=== PATIENT | male | born 1945 | race Caucasian/White ===

== ENCOUNTER 2018-08-19 11:12 | Observation (INO) | payer MEDICARE, OTHER ==
[~2018-08-19] VITALS: Ht 190.5 cm; Wt 105.0 kg
[2018-08-19] MEDS ORDERED: ZESTRIL40 MG PO (11:36)
[2018-08-19] MEDS ORDERED: FUROSEMIDE20 MG PO (11:36)
[2018-08-19] MEDS ORDERED: METOPROLOL SUCC25 MG PO (11:37)
--- NOTE | 2018-08-19 14:29 | EKG ---
[facility] [address] [facility] [place], [place] [address] Signed Atrial fibrillation with rapid ventricular response Nonspecific ST and T wave abnormality Abnormal ECG No previous ECGs available Confirmed by MARIANELA BANUELOS DO ([id number]) on 08/19/2018 2:29:32 PM Electronically Signed By: MARIANELA BANUELOS DO 08/19/18 1429 PATIENT NAME: SEAN SAGE Electrocardiogram DATE OF : 47 PHYSICIAN: MARIANELA BANUELOS DO REPORT #: [id number] REPORT IS CONFIDENTIAL AND NOT TO BE RELEASED WITHOUT AUTHORIZATION
--- NOTE | 2018-08-19 15:30 | NUR ---
PT ARRIVED FROM ED. PT TRANSFERES SELF TO BED. WARM BLANKETS PROVIDED INTAKE ASSESSMENT DONE. FLUIDS HUNG (SEE MAR). PT REPORTS 7/10 PAIN BUT DENIES NEED FOR PAIN MEDICATION AT THIS TIME. PT ASSISTED WITH ORDERING DINNER. BED RAILS UP. CALL LIGHT WITHIN REACH. BED ALARM ON.
--- NOTE | 2018-08-19 17:55 | NUR ---
PT REQUESTS PAIN MEDICATION FOR 4/10 PAIN IN LEFT ANKLE AND WRIST. SEE MAR FOR MEDICATION GIVEN. PT ATTEMPTING TO VOID FOR SAMPLE. BED RAILS UP. CALL LIGHT WITHIN REACH.
--- NOTE | 2018-08-19 18:42 | NUR ---
PT ADMITTED TODAY FOR WEAKNESS AFTER 2 DAYS ON THE FLOOR AT HOME. PT TOLERATING REGULAR DIET. FLUID BOLUS GIVEN. TYLENOL PRN FOR PAIN IN LEFT WRIST AND LEFT ANKLE. SWELLING NOTABLE. URINE SAMPLE SENT TO LAB. RECENT DIAGNOSIS OF CHF, PT NONCOMPLIANT WITH CARE. PT USING CALL LIGHT APPROPRIATLY.
--- NOTE | 2018-08-19 19:05 | NUR ---
REPORT RECEIVED FROM ALISON JOE, PT RESTING IN BED, VISITING WITH STAFF. NO NEEDS AT THIS TIME. CALL LIGHT WITHIN REACH. FALL PRECAUTIONS IN PLACE.
[2018-08-19] MEDS ORDERED: METOPROLOL TART25 MG PO (19:06)
--- NOTE | 2018-08-19 20:30 | NUR ---
IN ROOM TO ADMIN EVENING MEDS, SHIFT ASSESSMENT COMPLETE, PT AOX4, APPROPRIATE, POLITE, CALM, PT MENTIONS CHRONIC PAIN RELATED TO ARTHRITIS IN ANKLES, DENIES NEED FOR PAIN MEDICATION AT THIS TIME. STATES PAIN IS 3/10. VSS, AFEBRILE, PT'S LS CLEAR, PULSES REGULAR, STRONG IN BUE, BLE EDEMA NOTED, PULSES FAINT/THREADY. CAP REFILL WNL, IV SL, FLUSHES WELL, ON RA, EDUCATION PROVIDED REGARDING MEDICATIONS, QUESTIONS ANSWERED, SIDE EFFECTS EXPLAINED. PT GIVEN NEW ICE WATER PER PT'S REQUEST, TOOTHBRUSH AND TOOTH PASTE PROVIDED FOR ORAL CARE. NO FURTHER REQUESTS AT THIS TIME. CALL LIGHT WITHIN REACH.
--- NOTE | 2018-08-19 20:53 | NUR ---
ROUNDED CHARGE. PATIENT IS RESTING IN BED. RN IN THE ROOM. PATIENT DENIES ANY COMMENTS, QUESTIONS, OR CONCERNS. NO NEEDS NOTED. CALL LIGHT IN REACH. BED ALARM ON FOR SAFETY.
--- NOTE | 2018-08-19 21:42 | NUR ---
MD NOTIFIED OF PT'S URINE OUTPUT OF 175, PER CALL PROTOCOLS PT'S URINE OUTPUT IS LOW, MD AWARE. NO NEW ORDERS. MD TO FOLLOW UP IN AM.
--- NOTE | 2018-08-19 21:55 | NUR ---
PATIENT CALLED TO EMPTY THE URINAL. PATIENT VOIDED 175 ML.
--- NOTE | 2018-08-19 23:41 | NUR ---
PT APPEARS TO BE SLEEPING, BREATHS EVEN, UNLABORED, NO NEEDS AT THIS TIME. CALL LIGHT WITHIN REACH, HYDRATION AT BEDSIDE. BED ALARM ON. FALL PRECAUTIONS IN PLACE.
--- NOTE | 2018-08-20 02:25 | NUR ---
IN PT ROOM FOR VITALS, PT INCONTINENT OF URINE, PT STATES "I MISSED THE URINAL". ROB FREGOSO, JOSH CHANGED AT THIS TIME, 75 ML VOID NAMRATA IN COLOR. PT ASSISTED WITH ADDITIONAL VOID AT THIS TIME, 175 ML NAMRATA URINE, ODOROUS. TATYANA BILL NOW IN ROOM TO ASSESS PT. CALL LIGHT IN REACH. PT GIVEN FRESH ICE WATER.
--- NOTE | 2018-08-20 02:43 | NUR ---
IN ROOM FOR SHIFT ASSESSMENT, PT AOX4, APPOPRIATE, RESTING IN BED, LS CLEAR, HEART SOUNDS IRREGULAR RYTHM, PULSES STRONG IN BUE, FAINT IN BLE, MODERATE PITTING EDEMA NOTED IN BLE/ LEFT WRIST. PT DENIES ANY PAIN AT THIS TIME. BT HYPOACTIVE, ABD NONTENDER, SOFT, ON RA, DENIES SOB/CP, DENIES ANY NEEDS AT THIS TIME, HYDRATION AT BEDSIDE. CALL LIGHT WITHIN REACH, BED ALARM ON, FALL PRECAUTIONS IN PLACE.
--- NOTE | 2018-08-20 04:00 | NUR ---
PT APPEARS TO BE SLEEPING, BREATHS EVEN, UNLABORED, NO NEEDS AT THIS TIME. CALL LIGHT WITHIN REACH. HYDRATION AT BEDSIDE. BED ALARM ON. FALL PRECAUTIONS IN PLACE.
--- NOTE | 2018-08-20 04:25 | NUR ---
PT AOX4 THIS SHIFT, SLEPT MOST OF THIS SHIFT, NO PRN PAIN MEDICATION GIVEN THIS SHIFT. IV SL, PT DID NOT GET OUT OF BED THIS SHIFT, PT VOIDS WITH URINAL AND ASSISTANCE, ON RA, REGULAR DIET. USES CALL LIGHT APPROPRIATELY. VSS. URINE OUTPUT LOW AT BEGINNING OF SHIFT, QS OVER THE LAST FOUR HOURS. NO C/O NAUSEA OR SOB.
--- NOTE | 2018-08-20 06:54 | NUR ---
PT UP TO STAND AT BEDSIDE WITH 2-3 PERSON MAX ASSIST FOR STANDING BEDSIDE WEIGHT. PT UNABLE TO STEP UP ON SCALE, SCALE HAD TO BE REPOSITIONED WITH HIS FEET ON IT. PT UNSTEADY ON HIS FEET. PT DENIES ANY PAIN OR LIGHT HEADEDNESS OR DIZZINESS WITH STANDING, STATES THAT HE JUST FEELS WEAK IN HIS LOWER EXTREMITIES. PT BACK TO BED NOW, CALL LIGHT WITHIN REACH. NEW ICE WATER PROVIDED PER EMAR. NO FURTHER REQUESTS AT THIS TIME.
--- NOTE | 2018-08-20 07:46 | NUR ---
MORNING ASSESSMENT AND MEDICATIONS DUE. THIS RN TO BEDSIDE. PT STATES HE IS PLANNING TO GO HOME TODAY. PT UPDATED ON PLAN OF CARE AND VISITS WITH PHYSICAL THERAPY, OCCUPATIONAL THERAPY, AND CASE MANAGEMENT TODAY. PT REPORTS 2/10 PAIN IN LEFT ANKEL AND WRIST, AND 3/10 PAIN IN RIGHT ANKLE. PT DENIES NAUSEA. PT CONTINUES TO BE WEEK IN LEGS AND LEFT ARM. ASSESSMENT DONE. MEDICATIONS GIVEN (SEE MAR). PT EATING BREAKFAST, BED RAILS UP. CALL LIGHT WITHIN REACH.
[2018-08-20] MEDS ORDERED: IBUPROFEN200 MG PO (09:56)
[2018-08-20] MEDS ORDERED: ASPIRIN325 MG PO (09:56)
--- NOTE | 2018-08-20 09:57 | NUR ---
MED REC COMPLETE
--- NOTE | 2018-08-20 10:57 | NUR ---
MEDICATIONS DUE. THIS RN TO BEDSIDE. PT UP IN CHAIR TALKING WITH MD. MEDICATIONS GIVEN ORDERED. CRACKERS PROVIDED A SNACK. PT ORDERING LUNCH. NO ADDITIONAL REQUESTS OR COMPLAINTS.
--- NOTE | 2018-08-20 13:31 | NUR ---
PT SITTING IN CHAIR, ALERT AND ORIENTED. HIS RESPONSES TO MY QUESTIONS EACH HAD INTERESTING ANSWERS. HIS THOUGHT PROCESS IS UNIQUE TO SAY THE LEAST. PT DID MENTION THAT HE DID NOT LIKE IV'S, HAS PULLED THEM OUT HIMSELF AT [facility] NOT [facility]. I CAUTIONED HIM TO NOT PULL THEM OUT HERE. WILL CONTINUE TO CHECK ON PT, AND FOLLOW NEEDED
--- NOTE | 2018-08-20 13:58 | NUR ---
THIS RN TO BEDSIDE FOR PIV START. PT REFUSING IV START. MD NOTIFIED. MD STATES OK TO LEAVE PIV OUT. PT DENIES PAIN AND NASUEA. PT UP TO CHAIR. CALL LIGHT WITHIN REACH.
--- NOTE | 2018-08-20 15:00 | NUR ---
THIS RN TO ROOM TO UPDATED PT ON PLAN OF CARE. PT UP TO CHAIR. VERBALIZES UNDERSTANDING OF PLAN OF CARE. NO REQUESTS OR COMPLAINTS AT THIS TIME. CALL LIGHT WITHIN REACH.
--- NOTE | 2018-08-20 16:03 | NUR ---
TALKED WITH PT ABOUT THE APPT MADE WITH DR CHANG FOR Aug AT 1030 AM. I INFORMED THE PT OF THIS AND HE WAS VERY HAPPY ABOUT THIS. EXPLAINED WHERE THE OFFICES ARE. ALSO LET THE PT KNOW THAT WE ASSIGNED A CHW FOR HIM AND WOULD THAT BE OK IF THEY CALLED AND POSS VISITED WITH HIM. HE STATED HE WOULD WELCOME THE HELP. FAXED OFF PAPERWORK FOR A FRONT WHEELED WALKER INCLUDING FACE SHEET, ER NOTES, H AND P, PROG NOTE, PT NOTE AND OT NOTE. RECIEVED FAX CONFIRMATION.
--- NOTE | 2018-08-20 17:25 | NUR ---
AFTERNOON ASSESSMENT AND MEDICATIONS DUE. THIS RN TO BEDSIDE. PT EATING DINNER. PT REPORTS 2-3/10 PAIN THAT "ISN'T THAT BAD." PT DENIES NEED FOR PAIN MEDICATION AT THIS TIME. ASSESSMENT DONE. SWELLING CONTINUES IN BLE. PT ENCOURAGED TO KEEP BLE ELEVATED. EDUCATION DONE R/T PTS CONDITION AND REASON FOR SWELLING. PT VERBALIZES UNDERSTANDING. CALL LIGHT WITHIN REACH. PT WATCHING TV. NO ADDITIONAL REQUESTS OR COMPLAINTS.
--- NOTE | 2018-08-20 18:13 | NUR ---
PATIENT RESTING IN BED. VITAL SIGNS AND I&O DONE. HIGH BLOOD PRESSURE. RN NOTIFIED. CALL LIGHT WITHIN REACH. NO OTHER NEEDS AT THIS TIME.
--- NOTE | 2018-08-20 18:13 | NUR ---
PT HERE FOR WEAKNESS. TOLERATING REGULAR DIEST WELL. 2 PA WITH FWW. PT UP WITH PHYSICAL THERAPY TODAY, MUCH STRONGER IN PM. OCCUPATIONAL THERAPY INVOLVED WELL. NO PIV (PT REFUSED). DAILY WEIGHT. PRN TYLENOL FOR PAIN. PT ANTICIPATING DISCHARGE TOMORROW. PT USES CALL LIGHT APPROPRIATLY.
--- NOTE | 2018-08-20 18:42 | NUR ---
MD NOTIFIED OF PTS BLOOD PRESSURES (HIGHLIGHTING DIASTOLIC VALUES). MD STATES HE WILL REEVALUATE BLOOD PRESSURE MEDICATIONS AND PLACE NEW ORDERS.
--- NOTE | 2018-08-20 19:15 | NUR ---
BEDSIDE REPORT RECEIVED FROM TATYANA ROSAS. PT AWAKE, SITTING AT SIDE OF BED. URINAL EMPTIED AT THIS TIME. CALL LIGHT IN REACH, PT VERBALIZES UNDERSTANDING TO USE CALL LIGHT BEFORE GETTING OUT OF BED. ICE WATER PROVIDED PER PT REQUEST.
--- NOTE | 2018-08-20 19:20 | NUR ---
BEDSIDE CHARGE NURSE REPORT RECEIVED FROM [place]. PT SITTING ON EDGE OF BED, WATCHING TV.
--- NOTE | 2018-08-20 20:23 | NUR ---
IN PT ROOM FOR SCHEDULED MEDICATION ADMINISTRATION. BP 138/99, HR 84, PT EDUCATED ON ADJUSTED DOSE OF METOPROLOL. PRN TYLENOL ADMINISTERED FOR 3/10 PAIN BILATERALLY IN ANKLES PER PT REQUEST. PULSES STRONG BILATERALLY UPPER AND LOWER EXTREMITIES, 2 + PITTING EDEMA BILATERALLY LOWER EXTREMITIES, 1+ EDEMA L WRIST. PT GIVEN ICE WATER, CLEAR YELLOW URINE EMPTIED FROM URINAL. PT HAS NO ADDITIONAL REQUESTS AT THIS TIME, LIGHTS OFF IN ROOM, CALL LIGHT IN REACH.
--- NOTE | 2018-08-20 21:45 | NUR ---
CALL LIGHT ANSWERED, PT ASSISTED TO REPOSITION/ADJUST BLANKETS. URINAL EMPTIED 350 YELLOW URINE. HISTOLOGY SPECIALIST NOTIFIED OF PT REQUEST FOR SANDWICH BOX AT THIS TIME. CALL LIGHT IN REACH, LIGHTS OFF IN ROOM.
--- NOTE | 2018-08-20 23:18 | NUR ---
CHECKED ON PT, LYING ON LEFT SIDE, APPEARS TO BE SLEEPING, BREATHING NON-LABORED. LIGHTS OFF IN ROOM.
--- NOTE | 2018-08-21 00:55 | NUR ---
CHECKED ON PT, APPEARS TO BE SLEEPING, EYES CLOSED, BREATHING EVEN AND NON-LABORED. LIGHTS OFF IN ROOM.
--- NOTE | 2018-08-21 03:05 | NUR ---
PATIENT CALLED FOR URINAL TO BE EMPTIED. ICE WATER REFILLED.
--- NOTE | 2018-08-21 03:29 | NUR ---
ROUNDED ON PT, APPEARS TO BE SLEEPING, EYES CLOSED, VISIBLE CHEST RISE EQUAL BILATERALLY. LIGHTS OFF IN ROOM.
--- NOTE | 2018-08-21 05:06 | NUR ---
PT HAS APPEARED TO SLEEP WELL THROUGHOUT SHIFT. VOIDING QS, YELLOW IN COLOR IN URINAL. PRN TYLENOL X 1 FOR CHRONIC L WRIST, L ANKLE PAIN. NO IV ACCESS. 2+ PITTING EDEMA BLE, 1+ EDEMA L HAND. LEGS ELEVATED THROUGHOUT SHIFT. 2PA WITH FWW.
--- NOTE | 2018-08-21 05:30 | NUR ---
PT ASSESSMENT AND VITALS COMPLETE AT THIS TIME. STANDING WEIGHT 231.4 LBS. URINAL EMPTIED, 125 ML CONCENTRATED URINE. PT DENIES PAIN AT THIS TIME, REFUSES PRN PAIN MEDICATIONS. PT GIVEN WARM BLANKET, ICE WATER, CALL LIGHT IN REACH. LIGHTS OFF IN ROOM.
--- NOTE | 2018-08-21 07:22 | NUR ---
RECIEVED REPORT FROM ZULMA JOE. PATIENT SITTING UP IN BED, AWAKE AND ALERT. WHITE BOARD UPDATED. DISCUSSED PLANS ABOUT DISCHARGE. ICE WATER BROUGHT TO PATIENT. DR. BANUELOS IN ROOM WITH PATIENT. NO MORE NEEDS AT THIS TIME.
[2018-08-21] MEDS ORDERED: POTASSIUM CHLO10 MEQ PO (08:08)
--- NOTE | 2018-08-21 08:58 | NUR ---
PATIENT SITTING ON SIDE OF BED FROM BREAKFAST. FRESH WATER GIVEN. WARM WASHCLOTH PROVIDED. ORAL CARE SET UP IN BATHROOM. CALL LIGHT IN REACH. NO FURTHER NEEDS AT THIS TIME.
--- NOTE | 2018-08-21 09:42 | NUR ---
ROUNDED ON PATIENT FOR MEDICATION ADMINISTRATION AND MORNING ASSESSMENT. PATIENT DENIES SHORTNESS OF BREATH AND DIFFICULTY BREATHING, ROOM AIR. PATIENT DENIES DIZZINESS WHEN STANDING. REPORTS TINGLING IN LEFT LOWER EXTREMITIES AT THIS TIME, BUT REPORTS OCCASIONAL TINGLING THAT COMES AND GOES IN LOWER EXTREMITIES. 2PA PATIENT WITH ASSISTANCE FROM TUBE BLOWER TO SHOWER CHAIR FOR SHOWER. PATIENT DENIES PAIN AT THIS TIME. TUBE BLOWER PROVIDED EDUCATION TO PULL CORD IN SHOWER WHEN FINISHED WITH SHOWER. TUBE BLOWER MAKING PATIENT BED. POSSESSIONS AT BEDSIDE. NO MORE NEEDS AT THIS TIME.
--- NOTE | 2018-08-21 10:00 | NUR ---
TALKED TO PHYSICAL THERAPIST ABOUT ASSESSING THE HEIGHT OF PATIENT WALKER, PER PATIENT REQUEST. PHYSICAL THERAPIST EXPRESSED UNDERSTANDING.
--- NOTE | 2018-08-21 10:23 | NUR ---
FAXED FACE SHEET, ORDER, ER NOTES AND SUMMARY, H AND P, PROG NOTES, PT AND OT EVALS AND NOTES TO [facility]. RECIEVED FAX CONFIRMATION OF THIS.
--- NOTE | 2018-08-21 11:58 | NUR ---
rounded on patient for medication adminstration. patient resting in bed, awake and alert. patient REPORTS AT "4/10" PAIN IN LEFT WRIST AND "3/10" PAIN IN LEFT ANKLE, PRN TYLENOL. DISCHARGE INSTRUCTION PROVIDED ABOUT WEAKNESS AND ENSURING SAFETY AT HOME. TAUGHT PATIENT ABOUT THE IMPORTANCE OF TAKING SCHEDULED MEDICATIONS, REMOVING EXCESS RUGS AND CORDS TO PREVENT TRIPPING HAZARDS IN THE HOME. PATIENT WAS INSTRUCTED TO USE WALKER WHILE AMBULATING AND TO HAVE INCREASED LIGHTING IN THE HOME TO INCREASE VISABLITY OF OBJECTS IN THE HOME TO PREVENT FALLS. PATIENT EXPRESSED UNDERSTANDING BY STATING THEY WILL "REMOVE BLANKETS AND PILLOWS FROM FLOOR". [employer] [facility] NOTIFED FOR PATIENT TRANSPORT. CALL LIGHT WITHIN REACH. NO MORE NEEDS AT THIS TIME.
== END 2018-08-21 12:31 | disposition home or self-care (01) ==
LOC: ED 11:12 → MS 11:14
PROVIDERS: ADMIT Student in an Organized Health Care Education/Training Program
DX: I48.2 Chronic atrial fibrillation (principal); R53.1 Weakness; F10.10 Alcohol abuse, uncomplicated; I11.0 Hypertensive heart disease with heart failure; I50.9 Heart failure, unspecified; I16.0 Hypertensive urgency; R79.89 Other specified abnormal findings of blood chemistry; M62.82 Rhabdomyolysis; M19.032 Primary osteoarthritis, left wrist; Z87.891 Personal history of nicotine dependence; Z79.1 Long term (current) use of non-steroidal anti-inflammatories (NSAID); Z79.82 Long term (current) use of aspirin; Z79.899 Other long term (current) drug therapy
CPT/HCPCS: 36415; 71045; 73110; 80053; 81001; 82248; 82550; 83880; 84153; 84443; 84484; 85025; 85651; 93005; 93010; 96374; 97116; 97161; 97166; 97530; 97535; 99285; 99406; G0378; G8978; G8979; G8980; J7120

== ENCOUNTER → 2020-08-16 | Emergency (ER) | payer MEDICARE, OTHER ==
[~2020-08-16] VITALS: Ht 190.5 cm; Wt 113.4 kg
[~2020-08-16] MED LIST: ASPIRIN325 MG PO; FUROSEMIDE20 MG PO; HYDROCHLOROTH12.5 MG PO; IBUPROFEN200 MG PO; METOPROLOL SUCC25 MG PO; METOPROLOL TART25 MG PO; POTASSIUM CHLO10 MEQ PO; ZESTRIL40 MG PO
--- NOTE | 2020-08-17 06:45 | EKG ---
[facility] [address] [place] [address] Signed Sinus rhythm with short NV with premature supraventricular complexes Left axis deviation Incomplete right bundle branch block Septal infarct , age undetermined Cannot rule out Inferior infarct , age undetermined Abnormal ECG When compared with ECG of 19-AUG-2018 11:16, Significant changes have occurred Confirmed by RIO MILNER MD ([id number]) on 08/17/2020 6:44:56 AM Electronically Signed By: RIO MILNER MD 08/17/20 0645 PATIENT NAME: SEAN SAGE Electrocardiogram DATE OF : 47 PHYSICIAN: RIO MILNER MD REPORT #: [id number] REPORT IS CONFIDENTIAL AND NOT TO BE RELEASED WITHOUT AUTHORIZATION
== END ==
LOC: ED 09:13
DX: S05.31XA Ocular laceration without prolapse or loss of intraocular tissue, right eye, initial encounter (principal); I11.0 Hypertensive heart disease with heart failure; I50.9 Heart failure, unspecified; D64.9 Anemia, unspecified; K92.2 Gastrointestinal hemorrhage, unspecified; I21.4 Non-ST elevation (NSTEMI) myocardial infarction; N19 Unspecified kidney failure; W19.XXXA Unspecified fall, initial encounter; I48.91 Unspecified atrial fibrillation; F17.200 Nicotine dependence, unspecified, uncomplicated; Z79.899 Other long term (current) drug therapy; Z79.82 Long term (current) use of aspirin
CPT/HCPCS: 70450; 71045; 72125; 80053; 81001; 82550; 83735; 83880; 84484; 85025; 93005; 93010; 96374; 99285-25; C9113

== ENCOUNTER 2020-08-20 11:23 | Inpatient (IN) | payer MEDICARE, OTHER ==
[~2020-08-20] VITALS: Ht 190.5 cm; Wt 102.3 kg
--- NOTE | 2020-08-20 16:10 | NUR ---
Patient arrives in wheelchair from [facility] for transitional care to room 108. 2 person assist from wheelchair to bed. Continent of urine. Dr. Sosa in to see patient. Assessment completed.
--- NOTE | 2020-08-20 16:16 | NUR ---
SPOKE WITH PATIENT IN ROOM. HE HAS JUST ARRIVED. DISCUSSED [facility] TRANSITIONAL CARE PROGRAM INCLUDING MEDICARE COVERAGE. HE STATES UNDERSTANDING. HE LIVES ALONE IN A HOUSE, HAS A FEW STEPS BUT ALSO A RAMP. HE HAS TWO WALKERS AT HIS HOME FROM PREVIOUS USE. HE UNDERSTANDS HE WILL BE WORKING WITH THERAPY HERE SO HE CAN GO HOME SAFELY ALONE. QUESTIONS ANSWERED. TRANSITIONAL CARE BROCHURE GIVEN. CLERK FUNERAL DETAIL AND HADOOP ENGINEER IN TO HELP HIM GET ADMITTED. DR HURTADO HERE AND LOOKING OVER HIS RECORDS.
--- NOTE | 2020-08-20 16:17 | NUR ---
PATIENT TRANSFERRED FROM TRANSPORT WHEELCHAIR TO BED WITH FRONT WHEEL WALKER AND 2 PERSON ASSIST. PATIENT INDICATED THAT [facility] USED 2 AND SOMETIMES 3 STAFF FOR TRANSFERS.
[2020-08-20] MEDS ORDERED: PROTONIX40 MG PO (16:40)
--- NOTE | 2020-08-20 18:16 | NUR ---
PATIENT UP IN CHAIR EATING DINNER, I&OS CHARTED. CALL LIGHT IN REACH, NO OTHER NEEDS
--- NOTE | 2020-08-20 19:05 | NUR ---
2 PA WITH FWW FROM BED TO CHAIR. FRESH ICE WATER PROVIDED. CALL LIGHT IN REACH
--- NOTE | 2020-08-20 19:20 | NUR ---
SHIFT REPORT RECEIVED FROM FARIBA JOE. PT RESTING IN BED, EYES CLOSED. RR EVEN, UNLABORED. CALL LIGHT IN REACH.
--- NOTE | 2020-08-20 20:30 | NUR ---
HELPED PT TO GET COMFORTABLE IN BED. VITALS AND I&OS DONE AND CHARTED. BEDSIDE TABLE AND CALL LIGHT IN REACH. GARBAGES EMPTIED AND ROOM CLEANED UP. PT NEEDS NOTHING MORE AT THIS TIME.
--- NOTE | 2020-08-20 20:47 | NUR ---
ASSESSMENT, VS AND I&O COMPLETED. GCS 15, A&O X4. SCHEDULED MEDS PROVIDED. LUNGS CLEAR, HEART TONES HAVE MURMUR. ABD SOFT, NONTENDER.PT STATES HIS MID THIGH OF RIGHT LEG FEELS NUMB. NUMBNESS IN BOTH FEET, LLE 3+ EDEMA, RLE 4+ EDEMA. PULSES INTACT X4 EXTREMITIES. MOTOR WEAK IN ALL 4 EXTREMITIES. IV WNL, CDI, FLUSHED WELL. ARM HAVE GENERALIZED EDEMA. SCATTERED BRUISING NOTED. SCABS ON BILATERAL THIGHS NOTED. PT EDUCATED CONCERNING FLUID RESTRICTION, SAFETY AND CALL LIGHT USE. NO OTHER NEEDS AT THIS TIME. CALL LIGHT IN REACH.
--- NOTE | 2020-08-21 00:10 | NUR ---
WITH THE HELP OF TATYANA IRIZARRY WE HELPED PT TO THE BSC AND BACK TO BED WITH HIS FWW. BEDSIDE TABLE AND CALL LIGHT IN REACH. PT NEEDS NOTHING MORE AT THIS TIME.
--- NOTE | 2020-08-21 00:10 | NUR ---
PT CALLS TO USE BR. 2PA, FWW TO BSC AND BACK TO BED. NO OTHER NEEDS AT THIS TIME. CALL LIGHT IN REACH.
--- NOTE | 2020-08-21 01:06 | NUR ---
PER PT REQUEST I GAVE HIM TWO WARM BLANKETS. I ALSO GAVE HIM A HOT PACK FOR HIS BACK . BEDSIDE TABLE AND CALL LIGHT IN REACH.
--- NOTE | 2020-08-21 02:59 | NUR ---
HELPED PT TO USE HIS URINAL AT THE SIDE OF HIS BED. HELPED HIM BACK INTO BED. BEDSIDE TABLE AND CALL LIGHT IN REACH. HE NEEDS NOTHING MORE AT THIS TIME.
--- NOTE | 2020-08-21 03:14 | NUR ---
PT RESTING IN BED, EYES CLOSED. RR EVEN, UNLABORED. CALL LIGHT IN REACH.
--- NOTE | 2020-08-21 04:56 | NUR ---
HELPED PT WITH THE URINAL AND HELPED HIM BACK INTO BED WITH HIS FWW. BEDSIDE TABLE AND CALL LIGHT IN REACH. GARBAGES EMPTIED. PT NEEDS NOTHING MORE AT THIS TIME.
--- NOTE | 2020-08-21 06:41 | NUR ---
PT DAILY WEIGHT TAKEN. PT MOVED TO CHAIR, 2PA FWW. NO OTHER NEEDS AT THIS TIME. CALL LIGHT IN REACH.
--- NOTE | 2020-08-21 07:34 | NUR ---
REPORT RECIEVED FROM [employer] SERVICES COORDINATOR RNEDIE.
--- NOTE | 2020-08-21 09:21 | NUR ---
MORNING ASSESSMENT DONE. PATIENT UP TO BATHROOM TO VOID AND BM. PATIENT DENIES PAIN, RESTING IN BED UNTIL PHYSICAL THERAPY TIME. PATIENT REPORTS THAT DR. SANTIAGO GAVE HIM A FLU SHOT THIS YEAR, BEFORE HE WAS RECENTLY AT [facility].
--- NOTE | 2020-08-21 12:34 | NUR ---
PATIENT UP TO CHAIR FOR LUNCH, DENIES NEEDS AT THIS TIME.
--- NOTE | 2020-08-21 14:26 | NUR ---
PATIENT RESTING IN CHAIR, DENIES NEEDS.
--- NOTE | 2020-08-21 19:55 | NUR ---
REPORT RECEIVED FROM DAY SHIFT RN. PT LYING IN BED ALERT AND ORIENTED EATING ICE CHIPS. DENIES NEEDS AT THIS TIME. WHITE BOARD UPDATED. CALL LIGHT IN REACH. BED ALARM FOR SAFETY.
--- NOTE | 2020-08-21 21:06 | NUR ---
SUPERVISOR PLASMA ROUNDING NOTE. PT RESTINGIN BED, STATES HE WILL "TUCK IN" FOR THE NIGHT. PT DENIES QUESTIONS, CONCERNS, OR NEEDS. CALL LIGHT IN REACH. WHITE BOARD UPDATED.
--- NOTE | 2020-08-21 22:22 | NUR ---
EVENING ASSESSMENT COMPLETE. SCHEDULED MEDS ADMINISTERED PER EMAR. PT DENIES PAIN OR NAUSEA. UP TO SIDE OF BED WITH FWW AND 2PA TO VOID 150 ML YELLOW URINE. BACK TO BED, VENITA WELL. SOME SOB REPORTED WITH ACTIVITY. SpO2 95% ON RA. BLE PITTING EDEMA NOTED. PT REMAINS WITHIN FLUID RESTRICTION. NO QUESTIONS OR CONCERNS AT THIS TIME. WARM BLANKETS PROVIDED. CALL LIGHT IN REACH. BED ALARM FOR SAFETY.
--- NOTE | 2020-08-21 22:50 | NUR ---
CALL LIGHT ANSWERED. PT TO SIDE OF BED WITH 2PA AND FWW TO VOID. TO RECLINER PER PT REQUEST. WARM BLANKET PROVIDED. CALL LIGHT IN REACH.
--- NOTE | 2020-08-21 23:39 | NUR ---
CALL LIGHT ANSWERED. PT BACK TO BED FROM SITTING IN RECLINER. 2PA WITH FWW. VENITA WELL.
--- NOTE | 2020-08-22 03:49 | NUR ---
CALL LIGHT ANSWERED. PT UP TO SIDE OF BED WITH 2PA AND FWW TO VOID. BACK TO BED, VENITA WELL. NO FURTHER NEEDS. CALL LIGHT IN REACH.
--- NOTE | 2020-08-22 05:46 | NUR ---
PT ON SIDE OF BED USING URINAL. DAILY WEIGHT OBTAINED. PT BACK TO BED, VENITA ACTIVITY WELL.
--- NOTE | 2020-08-22 07:00 | NUR ---
Report from Daniella Noel RN. Patient denies needs at this time. Call light in reach.
--- NOTE | 2020-08-22 09:38 | NUR ---
Lying in bed. States ankle and shoulder pain, chronic and currently tolerable. Denies needs at this time. VItal signs obtained, assessment completed. Call light in reach, bed rails up X2 and bed alarm activated.
--- NOTE | 2020-08-22 11:36 | NUR ---
BARAK AND NURSE GOT HIM UP IN HIS CHAIR FOR BREAKFAST. I CHANGED HIS BED LINENS. GOT HIM A WASH CLOTH HE SAID HE WANTED TO BRUSH HIS TEETH AFTER BREAKFAST.
--- NOTE | 2020-08-22 11:54 | NUR ---
Urine darkening slightly. No odor noted. Dr. Sosa notified. Will continue to monitor at this time.
--- NOTE | 2020-08-22 14:56 | NUR ---
Lying in bed, Medications given as prescribed. Educated on need for medications. Upset about recieving lasix, but does not refuse it.
--- NOTE | 2020-08-22 18:01 | NUR ---
IV magnesium administered X1. PO potassium administered as prescribed. Continues on IV lasix with frequent urine output. Continent and incontinent. Edema remains unchanged from AM assessment.
--- NOTE | 2020-08-22 18:41 | NUR ---
ASKED PATIENT IF HE WOULD LIKE TO TAKE A SHOWER TODAY. AND HE SAID TOMORROW TO TIRED TODAY.
--- NOTE | 2020-08-22 19:15 | NUR ---
REPORT RECEIVED FROM DAY SHIFT RN. PT LYING IN BED ALERT AND ORIENTED. DENIES NEEDS AT THIS TIME. WHITE BOARD UPDATED. CALL LIGHT IN REACH. BED ALARM FOR SAFETY.
--- NOTE | 2020-08-22 19:45 | NUR ---
FRAME BUILDER ROUNDING NOTE. HEREDITARY CANCER PROGRAM COORDINATOR TO ROOM FOR BED ALARM ACTIVE. PT ATTEMPTING TO GET OUT OF BED TO USE THE URINAL. HEREDITARY CANCER PROGRAM COORDINATOR REMINDS PT THAT HE IS SUPPOSED TO BE CALLING FOR ASSISTANCE. PT MAKES JOKE INSTEAD OF ACKNOWLEDGING CALL LIGHT USE. PT UP TO SIDE OF BED WITH FWW AND 1 PA. PT TOLERATED WELL. PT ASSISTED BACK TO BED, ABLE TO SCOOT HIMSELF UP IN BED WITH DIRECTION. PT PROVIDED WITH SMALL AMOUNT OF ICE CHIPS PER PRIMARY RN. PT DENIES FURTHER NEEDS. CALL LIGHT IN REACH. BED ALARM REACTIVATED.
--- NOTE | 2020-08-22 20:56 | NUR ---
EVENING ASSESSMENT COMPLETE. SCHEDULED MEDS ADMINISTERED PER EMAR. PT DENIES PAIN OR NAUSEA. VOID 150 ML CONCENTRATED URINE. BILAT LEGS ELEVATED IN BED. PITTING EDEMA NOTED. PT DENIES SOB. DENIES QUESTIONS OR CONCERNS. CALL LIGHT IN REACH. BED ALARM FOR SAFETY.
--- NOTE | 2020-08-22 21:30 | NUR ---
CALL LIGHT ANSWERED. PATIENT NEEDS TO USE THE URINAL. NO OTHER NEEDS AT THIS TIME.
--- NOTE | 2020-08-22 21:49 | NUR ---
CALL LIGHT ANSWERED. DENTAL PROSTHETIST ASSIST PT TO VOID IN BED. SNACK PROVIDED PER PT REQUEST.
--- NOTE | 2020-08-23 00:15 | NUR ---
PATIENT CALLED TO USE THE BATHROOM. ASSISTED USING URINAL IN BED. HANDED WIPES TO WASH HANDS.
--- NOTE | 2020-08-23 01:37 | NUR ---
PT RESTING IN BED WITH EYES CLOSED, NAD.
--- NOTE | 2020-08-23 02:16 | NUR ---
THIS COMMUNICATION ARTS LECTURER AND PRIMARY RN MIREYA ASSISTED PATIENT HAVING CLEAN UPS/BODY WIPE. PATIENT STOOD UP TO USE THE URINAL. PUT NEW PULL UPS AND GOWN. PATIENT IS BACK IN BED. CALL LIGHT IN REACH. BED ALARM ON FOR SAFETY.
--- NOTE | 2020-08-23 02:20 | NUR ---
CALL LIGHT ANSWERED. PT UP TO SIDE OF BED TO USE URINAL WITH 2PA AND FWW. BATH WIPES PROVIDED. PT ABLE TO DO OWN SPONGE BATH WITH SBA. CLEAN GOWN, BRIEF, AND LINEN PROVIDED. BACK TO BED, VENITA ACTIVITY WELL. DENIES PAIN OR SOB. NO FURTHER NEEDS. BED ALARM ON.
--- NOTE | 2020-08-23 02:58 | NUR ---
ANSWERED CALL LIGHT. PATIENT USED THE URINAL IN BED AND VOIDED. WASHED HANDS. NO OTHER NEEDS AT THIS TIME.
--- NOTE | 2020-08-23 04:28 | NUR ---
CALL LIGHT ANSWERED. PT VOID 100 ML CONCENTRATED URINE. DENIES FURTHER NEEDS.
--- NOTE | 2020-08-23 05:39 | NUR ---
CALL LIGHT ANSWERED. PT REQUESTING TO HAVE HIS "BED STRAIGHTENED OUT". ASSISTED PT TO REPOSITION IN BED.
--- NOTE | 2020-08-23 06:23 | NUR ---
SCHEDULED MEDS ADMINISTERED WITH SIPS OF WATER. PT DENIES PAIN OR SOB. NO FURTHER NEEDS. CALL LIGHT IN REACH. BED ALARM FOR SAFETY.
--- NOTE | 2020-08-23 07:30 | NUR ---
REPORT RECIEVED. PATIENT ASLEEP IN BED. RESPIRATIONS EVEN AND UNLABORED. BED ALARM ON. CALL LIGHT WITHIN REACH. RESPIRATIONS EVEN AND UNLABORED.
--- NOTE | 2020-08-23 08:07 | NUR ---
PATIENT RESTING IN BED. 300 FRESH WATER GIVEN. CALL LIGHT WITHIN REACH. WHITE BOARD UPDATED. NO FURTHER NEEDS AT THIS TIME.
--- NOTE | 2020-08-23 09:00 | NUR ---
OPEN FOR DISCUSSION IF PROTOCOL WOULD REQUIRE TO RE-TEST FOR COVID AT THIS POINT IN PT STAY. SAID "NO, IT IS NOT NEEDED"
--- NOTE | 2020-08-23 09:22 | NUR ---
PATIENT UP IN CHAIR. WATCHING TV. CALL LIGHT WITHIN REACH. NO FURTHER NEEDS AT THIS TIME. PATIENT DECLINES A SHOWER THIS MORNING.
--- NOTE | 2020-08-23 10:00 | NUR ---
PATIENT UP TO TOILET. BACK TO CHAIR WITHOUT RESULTS IN BATHROOM. MEDS GIVEN. ASSESSMENT COMPLETE. PATIENT REPORTS PAIN IN FEET/LOWER LEGS 04/23. LUNGS CLEAR. VS STABLE. WARM BLANKET GIVEN. NO FURTHER REQUESTS. CALL LIGHT WITHIN REACH.
--- NOTE | 2020-08-23 11:45 | NUR ---
patient resting in chair. tylenol given for pain 4/10 in feet. patient shown how to use tv remote. call light within reach. no further requests.
--- NOTE | 2020-08-23 12:17 | NUR ---
Spoke with Alexy. He lives in [place] alone, has two sons he is not in contact with. He has chronic conditions and is deconditioned. He will work in the [facility] program to meet his goals to return to baseline of independent. Discussed benedicto Tracey he is in a rehab prgram and will need to dress in street clothing and be out of bed for meals. He states understanding. He denies having anyone who can bring him clothing. Will check with materials management supervisor if there is any clothing available for Alexy.
--- NOTE | 2020-08-23 13:15 | NUR ---
patient watching tv in chair. meds given. miralax and senna given for patient complaint of constipation. patient denies pain. patient assisted back to bed to take a nap. patient ate 100% of lunch.
--- NOTE | 2020-08-23 13:38 | NUR ---
PATIENT IS RESTING. WILL TRY TO TALK WITH HIM AGAIN TOMORROW.
--- NOTE | 2020-08-23 14:00 | NUR ---
PATIENT ASLEEP IN BED. RESPIRATIONS EVEN AND UNLABORED. CALL LIGHT WITHIN REACH.
--- NOTE | 2020-08-23 14:15 | NUR ---
PT CALLED FROM BATHROOM, INTO ROOM. PT HAD BM, AMBULATED BACK TO BED WITH ONE PERSON ASSIST WITH FWW. TOLERATED ACTIVITY WELL.
--- NOTE | 2020-08-23 14:30 | NUR ---
PATIENT RESTING IN BED. CALL LIGHT WITHIN REACH. NO FURTHER NEEDS AT THIS TIME
--- NOTE | 2020-08-23 17:11 | NUR ---
PATIENT WATCHING TV IN BED. MEDS GIVEN. PATIENT REFUSES TO AMBULATE WHEN OFFERED. DINNER ARRIVES. DENIES PAIN. NO REQUESTS.
--- NOTE | 2020-08-23 18:38 | NUR ---
PATIENT HAD A GOOD DAY. UP TO THE CHAIR FOR MEALS. EATING WELL. VOIDING QUANTITY SUFFICIENT. HAD 1 LARGE BM. TYLENOL GIVEN ONCE FOR LOWER EXTREMITY PAIN. REFUSED TO WALK IN THE [place]. DIDN'T WORK WITH P/T D/T DIARRHEA. FOLLOWING FLUID RESTRICTION.
--- NOTE | 2020-08-23 21:21 | NUR ---
CHANGED BED THAT CAN BE EXTENDED. ASSISTED PATIENT DO [facility]. PATIENT IS BACK IN BED. CALL LIGHT WITHIN REACH. BED ALARM ON FOR SAFETY. V/S AND I&O'S TAKEN AND RECORDED.
--- NOTE | 2020-08-23 22:18 | NUR ---
EVENING ASSESSMENT COMPLETE. SCHEDULED MEDS ADMINISTERED PER EMAR. PT REFUSED STOOL SOFTENER DUE TO MULTIPLE BM'S DURING THE DAY. EDEMA NOTED BLE, ELEVATED ON PILLOWS. PT DENIES PAIN OR SOB. WARM BLANKETS PROVIDED. NO QUESTIONS OR CONCERNS AT THIS TIME. CALL LIGHT IN REACH.
--- NOTE | 2020-08-23 22:57 | NUR ---
BED ALARM SOUNDING. PT UP TO SIDE OF BED TO VOID 100 ML. BACK TO BED, VENITA WELL.
--- NOTE | 2020-08-24 00:34 | NUR ---
CALL LIGHT ANSWERED. PT REQUESTING HELP USING URINAL. VOID 75ML CONCENTRATED URINE. ASSISTED TO REPOSITION IN BED. SMALL AMOUNT OF ICE CHIPS PROVIDED PER REQUEST.
--- NOTE | 2020-08-24 02:43 | NUR ---
CALL LIGHT ANSWERED. EMPTIED URINAL. APPLE SAUCE PROVIDED. NO OTHER NEEDS AT THIS TIME.
--- NOTE | 2020-08-24 03:19 | NUR ---
CALL LIGHT ANSWERED. PT REQUESTING ASSISTANCE TO USE URINAL. VOID 125 ML CONCENTRATED URINE. INCONTINENT OF SMALL AMOUNT OF URINE. GOWN CHANGED. WARM BATH WIPES PROVIDED. ASSISTED PT TO REPOSITION IN BED.
--- NOTE | 2020-08-24 05:50 | NUR ---
CALL LIGHT ANSWERED. DOWN TO ASSIST PT TO USE URINAL AT SIDE OF BED. CLEAN BRIEF PROVIDED. DAILY WEIGHT OBTAINED. BACK TO BED, VENITA WELL.
--- NOTE | 2020-08-24 07:17 | NUR ---
report received. patient awake in bed. respirations even and unlabored. pt in a pleasant mood. no requests. call light within reach.
--- NOTE | 2020-08-24 09:33 | NUR ---
PATIENT AMBULATED WITH PT IN HALLWAY. PATIENT NOW BACK TO BED. WARM BLANKETS GIVEN. FRESH WATER GIVEN. LINENS CHANGED. PATIENT MAYBE WANTS SHOWER AFTER LUNCH. CALL LIGHT IN REACH. NO FURTHER NEEDS AT THIS TIME.
--- NOTE | 2020-08-24 10:00 | NUR ---
PATIENT WATCHING TV IN BED. STATES HE JUST FINISHED P/T. ATE 100% OF MEAL. ONLY PAIN IS IN RIGHT FOOT AND DENIES NEED FOR PAIN MED. ASPERCREME APPLIED TO FEET. ASSESSMENT COMLETE. NO REQUESTS.
--- NOTE | 2020-08-24 10:59 | NUR ---
PATIENT HAD TO PEE TWICE WHILE I WAS TALKING TO HIM. NURSING HELPED HIM WITH URINAL AND I LEFT THE ROOM AND CAME BACK. PATIENT STATES HE HAS NEVER HAD TO FOLLOW A LOW-SODIUM DIET BEFORE. I EXPLAINED THAT THE LIMIT FOR SODIUM IS 2,400 MG PER DAY. HIS MOST PROBLEMATIC FOODS ARE FRITOS AND SALSA THAT HE SOMETIMES EATS FOR LUNCH. HE DOESN'T EAT THEM ALL THE TIME. HE SOMETIMES EATS FROZEN POT PIES. I ENCOURAGED HIM TO LOOK AT THE LABEL AND THE BEST OPTIONS ARE ONES THAT ARE 600 MG SODIUM OR LESS. I WAS ONLY TALKING FOR A FEW MINUTES WHEN HE ASKED "ARE WE ABOUT DONE?" I SHOWED HIM A LOW-SODIUM SNACK LIST. HE LIKES PRYDEINIG CHEESE AND I TOLD HIM PRYDEINIG CHEESE IS THE LOWEST IN SODIUM. I ALSO LEFT A HANDOUT ON TIPS TO DECREASE SALT INTAKE WHICH ALSO HAS DEFINITIONS OF LOW SODIUM CLAIMS ON LABELS. HE LIVES BY HIMSELF, RARELY EATS OUT. USUALLY EATS BREAKFAST (KYRGYZ MUFFIN AND JELLY AND 1-2 GLASSES JUICE OR CHOCOLATE CHIP COOKIES FOR BREAKFAST. MAYBE TOAST FOR LUNCH OR THE FRITOS AND SALSA. DINNER MIGHT BE SPAGHETTI WITH MEAT SAUCE OR CHICKEN AND RICE THAT HE MAKES AT HOME. SOMETIMES DRINKS 1-2 MORE GLASSES OF JUICE IN THE AFTERNOON. DOES NOT LIKE MILK. CHANGED HIS DIET ON HIS WHITE BOARD TO 2 GRAM SODIUM. HE WILL NEED MORE REINFORCEMENT ON A LOW-SODIUM DIET.
--- NOTE | 2020-08-24 12:25 | NUR ---
PATIENT UP TO CHAIR FOR LUNCH. MEDS GIVEN. PATIENT DENIES PAIN OR DISCOMFORT. NO REQUESTS. CALL LIGHT WITHIN REACH.
--- NOTE | 2020-08-24 13:00 | NUR ---
DR HURTADO IN. PATIENT UP IN CHAIR RESTING. TV AND NEWSPAPER OFFERED. PATIENT CHOSE TV. NO FURTHER REQUESTS.
--- NOTE | 2020-08-24 13:36 | NUR ---
patient resting in chair. med given. call light within reach. no requests.
--- NOTE | 2020-08-24 13:50 | NUR ---
PT ALERT, ORIENTED AND SITTING IN CHAIR EATING LUNCH. PT SEEMS QUITE INVOLVED IN LUNCH, INTRO MYSELF, TOLD PT I WOULD CHECK BACK AGAIN AND LET HIM FINISH LUNCH. PT THANKED ME, GAVE BLESSING AND WILL FOLLOW
--- NOTE | 2020-08-24 13:59 | NUR ---
PATIENT SITTING ON EDGE OF BED. CALL LIGHT IN REACH. NO FURTHER NEEDS AT THIS TIME.
--- NOTE | 2020-08-24 14:36 | NUR ---
PATIENT ASLEEP IN BED. RESPIRATIONS EVEN AND UNLABORED. CALL LIGHT WITHIN REACH.
--- NOTE | 2020-08-24 15:40 | NUR ---
patient resting in bed without blankets after using urinal. assisted with covering up. call light within reach.
--- NOTE | 2020-08-24 16:08 | NUR ---
PATIENT HAD A GOOD DAY. WALKED WITH P/T. VOIDING QUANTITY SUFFICIENT. HAS DENIED NEED FOR PAIN MED ALL SHIFT. EATING WELL. COOPERATING WITH FLUID RESTRICTION. 1 PERSON STANDBY ASSIST WITH FWW. USING URINAL INDEPENDENTLY.
--- NOTE | 2020-08-24 16:35 | NUR ---
patient in bed resting. med given. aspercreme applied to both feet for foot pain 12/22. patient assisted up to chair to prepare for dinner arrival. 1 person assist with FWW. call light within reach. no requests.
--- NOTE | 2020-08-24 17:42 | NUR ---
PATIENT IN CHAIR. WARM BLANKETS AND FRESH WATER GIVEN. CALL LIGHT IN REACH. NO FURTHER NEEDS AT THIS TIME.
--- NOTE | 2020-08-24 18:28 | NUR ---
patient watching tv in bed. respirations even and unlabored. call light within reach.
--- NOTE | 2020-08-24 19:41 | NUR ---
PATIENT RESTING QUIETLY IN BED, PATIENT HAS NO NEEDS, AT THIS TIME. CALL IGHT AND FLUIDS IN REACH.
--- NOTE | 2020-08-24 21:25 | NUR ---
CALL LIGHT ANSWERED. HELPED PATIENT STRAIGHT UP BED LINENS. EMPTIED URINAL. V/S AND I&O TAKEN AND CHARTED. WARM BLANKET PROVIDED. CALL LIGHT IN REACH. SANTOSH CARE ASSISTANT JANUARY AND THIS CARE ASSISTANT WERE IN THE ROOM.
--- NOTE | 2020-08-24 21:27 | NUR ---
VITALS AND I&OS DONE AND CHARTED. HELPED PT INTO BED. PT DID MOST ALL OF THE WORK TO GET HIS LEGS UP IN BED. EMPTIED GARBAGES. BEDSIDE TABLE AND CALL LIGHT IN REACH. PT NEEDS NOTHING MORE AT THIS TIME.
--- NOTE | 2020-08-24 23:11 | NUR ---
PATIENT HAD BEEN RESTING QUIETLY AND CALLED TO USE THE URINAL AND JANE KWON ASSISTED HIM WITH THIS AND HELPED HIM GET COVERED BACK UP IN BED. CALL LIGHT IN REACH.
--- NOTE | 2020-08-25 00:26 | NUR ---
PATIENT CALLED FOR SOME WATER, INFORMED PATIENT HE HAD MET HIS LIMIT FOR THE DAY AND I GAVE HIM SOME LEMON SWABS FOR HIS MOUTH AND HE WAS OK WITH THAT. CALL LIGHT IN REACH.
--- NOTE | 2020-08-25 02:37 | NUR ---
PATIENT STILL REQUESTING MORE WATER, GAVE HIM MORE LEMON SWABS, AND HE SAID,"THAT WILL DO FOR NOW." CALL LIGHT IN REACH, NO OTHER NEEDS AT THIS TIME. URINAL EMPTIED.
--- NOTE | 2020-08-25 03:21 | NUR ---
PATIENT RESTING QUIETLY SUPINE, RESPIRATIONS REGULAR AND EVEN, EYES CLOSED, CALL LIGHT IN REACH.
--- NOTE | 2020-08-25 04:35 | NUR ---
PATIENT CALLING FOR WATER AGAIN, PATIENT INFORMED AGAIN HIS FLUID RESTRICTION WILL ALLOW HIM MORE WATER AT 6AM, PATIENT VERBALIZED UNDERSTANDING AND WILL KEEP USING HIS LEMON SWABS.
--- NOTE | 2020-08-25 06:01 | NUR ---
PATIENT HAS RESTED WELL MOST OF THE NIGHT, AWAKE NOW AND GOT AM MEDS AND WAS WEIGHED ON STANDING SCALE. PATIENT SITTING UP AT BEDSIDE LOOKING AT MENU TO ORDER BREAKFAST AND WAS GIVEN HIS FIRST 250MLS OF WATER FOR THE DAY. PATIENT HAS VOIDED QUANTITY SUFFICIENT WITH ONE INCONTINENT EPISODE. CALL LIGHT IS IN REACH.
--- NOTE | 2020-08-25 08:38 | NUR ---
Patient in bed, head of bed elevated. Continent of urine. Assessment completed. Decreasing edema to lower extremities noted. Educated on fluid restriction. Am medications administered as prescribed. Denies other needs at this time. Call light in reach, bed rails up X2.
--- NOTE | 2020-08-25 09:30 | NUR ---
Pt was discussed in AM meeting, PT voicing pt would like his shoes to walk. Pt stating they do not have anyone who can bring his shoes. In and spoke with pt, he states Mrs. Cotto who works at the [employer] and assisted him in the past and her children have worked for him. They do not have keys to his house. He does not have her phone number. I looked up the phone number for the library and gave it to him to call her, he does not want to call and would prefer I do so. Informed he needs to do this as he needs clothing and shoes. Also discussed it is Jasper's day, and the library may not be open today.
--- NOTE | 2020-08-25 09:51 | NUR ---
LINENS CHANGED, FRESH WATER PROVIDED. TALKED TO APTIENT ABOUT SHOWER, PATIENT REPORTS HE IS HESITANT BECAUSE HE DOEN'T WANT TO "GET THE SORE THROATS" THIS SLOPE RUNNER ASSURED HIM WE'D KEEP HIM WARM AND HE SHOULD NOT GET CHILLE LORRAINE ALL. PATIENT SAYS HE WILL THINK ABOUT IT. CALLIGHT IN REACH, NO OTHER NEEDS.
--- NOTE | 2020-08-25 09:56 | NUR ---
CALL LIGHT ANSWERED. PATIENT ASKS FOR WARM BLANKET. WARM BLANKET PROVIDED. CALL LIGHT WITHIN REACH. NO OTHER NEEDS AT THIS TIME
--- NOTE | 2020-08-25 10:16 | NUR ---
PATIENT BACK TO BED FROM CHAIR. 2PA WITH FWW, CALL LIGHT IN REACH
--- NOTE | 2020-08-25 11:50 | NUR ---
CALL LIGHT ANSWERED. PATIENT RESTING IN BED. SETS UP TABLE FOR LUNCH. ICE WATER GIVEN. CALL LIGHT WITHIN REACH. NO OTHER NEEDS AT THIS TIME
--- NOTE | 2020-08-25 11:55 | NUR ---
Eating lunch at this time. PO medication given as prescribed. Denies other needs. Call light in reach.
--- NOTE | 2020-08-25 13:24 | NUR ---
PATIENT IS RESTING IN BED, EYES CLOSED. I&OS CHARTED.
--- NOTE | 2020-08-25 14:08 | NUR ---
PT IN BED, LIGHTS OUT. REQUESTED I COME BACK AGAIN-WANTED TO REST. WILL FOLLOW NEEDED
--- NOTE | 2020-08-25 17:45 | NUR ---
Patient continent of urine. Continues on torsemide. WOrks with PT today. Edema in legs improving. Remains on fluid restriction of 1600mL/day.
--- NOTE | 2020-08-25 19:04 | NUR ---
1PA WITH FWW TO BED FROM CHAIR. CALLLIGHT IN REACH, WARM BLANKET PROVIDED. NO OTHER NEEDS
--- NOTE | 2020-08-25 19:30 | NUR ---
TOOK A WARM BLANKET TO THE PT PER HIS REQUEST. ALSO TURNED UP HIS HEAT. BEDSIDE TABLE AND CALL LIGHT IN REACH. PT NEEDS NOTHING MORE AT THIS TIME.
--- NOTE | 2020-08-25 19:32 | NUR ---
PATIENT AWAKE LAYING IN BED AND IS GETTING ONE CHOCOLATE PUDDING FROM JANUARY GRAIN TRADER. CALL LIGHT IN REACH.
--- NOTE | 2020-08-25 20:15 | NUR ---
PER PT REQUEST I TURNED DOWN HIS HEAT. EMPTIED HIS URINAL. GOT HIM A CHOCOLATE PUDDING PER HIS REQUEST AND PER RN SCOUT'S OK. BEDSIDE TABLE AND CALL LIGHT IN REACH.
--- NOTE | 2020-08-25 21:05 | NUR ---
CALL LIGHT ANSWERED. HEAT ADJUSTED IN ROOM. pt ASSISTED TO REPOSITION WITH RN RECLINING BED FOR pt TO SELF REPOSITION. CALL LIGHT IN REACH. pt IS REQUESTING ADDITIONAL FLUIDS, PRIMARY RN NOTIFIED. pt DENIES ANY ADDITIONAL REQUESTS AT THIS TIME.
--- NOTE | 2020-08-25 23:15 | NUR ---
PATIENT RESTING QUIETLY, EYES CLOSED, RESPIRATIONS REGULAR AND EVEN, CALL LIGHT IN REACH.
--- NOTE | 2020-08-26 01:21 | NUR ---
PATIENT RESTING QUIETLY SUPINE, EYES CLOSED, RESPIRATIONS REGULAR AND EVEN, CALL LIGHT IN REACH.
--- NOTE | 2020-08-26 01:28 | NUR ---
PT USED HIS CALL LIGHT TO ASK IF HE COULD HAVE A WARM BLANKET AND A SNACK. I BROUGHT HIM A WARM BLANKET AND A SNACK PER OK FROM HIS RN. PT NEEDS NOTHING MORE AT THIS TIME.
--- NOTE | 2020-08-26 03:26 | NUR ---
PATIENT ASSISTED TO THE BR 1PSBA AND FWW USED. PATIENT HAD A LARGE BM AND ATTENDS CHANGED AND PATEINT BACK TO BED. CALL LIGHT IN REACH.
--- NOTE | 2020-08-26 05:17 | NUR ---
PATIENT HAS SLEPT OFF AND ON THROUGH THE SHIFT. PATIENT USING THE URINAL BY HIMSELF WITH QS URINE AND UP TO THE BR X1 WITH 1 LARGE BM. AMBULATING WITH 1PSBA AND FWW. PATIENT CURRENTLY RESTING QUIETLY, EYES CLOSED, RESPIRATIONS REGULAR AND EVEN. CALL LIGHT IN REACH.
--- NOTE | 2020-08-26 07:05 | NUR ---
PT USED HIS CALL LIGHT IN NEED FOR A WARM BLANKET. HE WAS GIVEN TWO. URINAL EMPTIED WELL. CALL LIGHT IN REACH.
--- NOTE | 2020-08-26 07:19 | NUR ---
Report from Daniella Rabago RN.
--- NOTE | 2020-08-26 07:35 | NUR ---
Sitting up in chair at this time. Assessment completed. Denies needs at this time. Call light in reach.
--- NOTE | 2020-08-26 10:22 | NUR ---
Patient working with PT.
--- NOTE | 2020-08-26 10:54 | NUR ---
THE STUDENT NURSE HELPED ME CHANGE THE SHEETS ON HIS BED. SHE ALSO DID HIS VITALS AND I&O AND I PUT THEM IN THE COMPUTER. SHE ASKED HIM IF HE WOULD LIKE TO TAKE A SHOWER AND HE SAID SOMETIME TODAY.
--- NOTE | 2020-08-26 11:51 | NUR ---
Sitting up in chair, eating lunch. Call light in reach.
--- NOTE | 2020-08-26 17:16 | NUR ---
Up in chair for breakfast and lunch today. Works with PT. Continues on diuretic with decreasing lower extremity edema noted. Alert and oriented. Continues on fluid restriction, uses urinal.
--- NOTE | 2020-08-26 18:49 | NUR ---
COLTON AND I WALKED NEXT TO THE PATIENT WHILE HE WAS USING HIS WALKER TO SIT UP IN HIS CHAIR.
--- NOTE | 2020-08-26 19:00 | NUR ---
PT SITTING UP IN CHAIR. SHIFT REPORT RECIEVED. WHITE BOARD CLEARED. PATIENT DENIES PAIN AT THE TIME.CALL LIGHT WITHIN REACH. NO CONCERNS AT THIS TIME.
--- NOTE | 2020-08-26 19:02 | NUR ---
THE INBOUND CALL CENTER REPRESENTATIVE AND I HELPED PATIENT WITH HIS SHOWER. AROUND 1400. GOT HIM SOME WARM BLANKETS.
--- NOTE | 2020-08-26 20:07 | NUR ---
CALL LIGHT ON. pt REQUESTED ASSISTANCE WITH COVERS. PROVIDED. TIDIED ROOM. NO FURTHER REQUESTS AT THIS TIME. CALL LIGHT WITHIN REACH.
--- NOTE | 2020-08-26 20:39 | NUR ---
pt used call light to request a couple warm blankets. nothing further needed at this time.
--- NOTE | 2020-08-26 21:23 | NUR ---
pt USED CALL LIGHT TO ASK FOR CHOCOLATE PUDDING, APPROVED BY INSTALLATION SUPERINTENDENT MANDY.
--- NOTE | 2020-08-26 22:15 | NUR ---
ASSESSMENT COMPLETE, VSS. PT REPORTS 7/10 PAIN IN ANKLES R/T WORKING WITH PT EARLIER. PRN TYLENOL GIVEN (SEE EMAR). SCHEDULED BOWEL MEDS REFUSED BY PT. PT DENIES NAUSEA, BT ACTIVE. GENERALIZED +2 EDEMA TO BLE, ELEVATED WITH PILLOW. NO FURTHER NEEDS, CALL LIGHT IN REACH.
--- NOTE | 2020-08-27 00:22 | NUR ---
PT AWAKE AND RESTING IN CHAIR, REMAINING WATER FROM FLUID RESTRICTION PROVIDED PER PT REQUEST, NO FURTHER NEEDS. CALL LIGHT IN REACH.
--- NOTE | 2020-08-27 00:45 | NUR ---
PT REQUESTS TO GET BK INTO BED, SBA FWW, PT TUCKED IN, BED SIDE TABLE IN PLACE, CALL LIGHT IN HAND, NO FURTHER NEEDS AT THIS TIME
--- NOTE | 2020-08-27 03:39 | NUR ---
PT RESTING IN BED WITH EYES CLOSED. RESPIRATIONS EVEN AND UNLABORED, NO DISTRESS NOTED. CALL LIGHT IN REACH.
--- NOTE | 2020-08-27 04:36 | NUR ---
PT HAD A GOOD NIGHT, CALLED APPROPERIATELY. VSS, PAIN CONTROLLED WITH PRN TYLENOL. 2G SODIUM DIET, TOLERATING WELL. NO NAUSEA REPORTED. 1-2PA WITH FWW. VOIDING QS, NO BM THIS SHIFT.
--- NOTE | 2020-08-27 05:14 | NUR ---
SCHEDULED PROTONIX GIVEN (SEE EMAR). FRESH COFFEE PROVIDED, EDUCATED ON FLUIDS RESTRICTION. URINAL EMPTIED AND ROOM TIDED. NO FURTHER NEEDS, CALL LIGHT IN REACH.
--- NOTE | 2020-08-27 07:40 | NUR ---
PT UP TO THE CHAIR SBA USING FWW. STATES HE IS READY FOR BREAKFAST. DENIES PAIN OR ANY DISCOMFORTS. FLUID RESTRICTION REVIEWED UNDERSTANDING VERBALIZED
--- NOTE | 2020-08-27 08:48 | NUR ---
CALL LIGHT ANSWERED. WARM BLANKETS PROVIDED. NO ADDITIONAL REQUESTS. CALL LIGHT IN REACH.
--- NOTE | 2020-08-27 09:17 | NUR ---
PT EATS 100% OF MORNING MEAL. UP WORKING WITH O/T AT THIS TIME DOING SELF CARES.
--- NOTE | 2020-08-27 10:31 | NUR ---
PT UP IN THE CHAIR DENIES NEEDS OF. TOLERATES 100% OF MORNING MEAL. IV SITE ESTABLISHED FOR MG INFUSION WELL TOLERATED
--- NOTE | 2020-08-27 12:10 | NUR ---
PT ALERT, ORIENTED AND SITTING IN CHAIR. BEGAN TO OUTLINE WITH PT MY ROLE AND HOW I CAN BE OF ASSISTANCE. HE SAID LET HIM THINK ABOUT IT AND VISIT AGAIN. GAVE BLESSING AND LEFT YOMAIRA
--- NOTE | 2020-08-27 13:07 | NUR ---
PATIENT AND PERSONAL BELONGINGS MOVED TO NEW ROOM, BOARD UPDATED. PATIENT REPORTS FEELING "SPOOKED" TO BE IN NEW ROOM HE DOEN'T KNOW WHO WAS JUST HERE. THIS FARE REGISTER REPAIRER ASSURED HIM ROOM WAS CLEANED APPROPRIATELY. CALL LIGHT IN REACH, NO OTHER NEEDS AT THIS TIME
--- NOTE | 2020-08-27 14:13 | NUR ---
PT UP AND WORKS WITH P/T THEN LAYS DOWN TO REST.
--- NOTE | 2020-08-27 16:42 | NUR ---
PATIENT AWAKE IN BED. I&OS CHARTED AND WARM BLANKET PROVIDED. ROOM TEMP AT 76 BUTPATIENT IS ALWAYS CHILLED. CALL LIGHT IN REACH, NO OTHER NEEDS AT THIS TIME
--- NOTE | 2020-08-27 19:00 | NUR ---
SHIFT REPORT RECEIVED FROM DAYSHIFT TATYANA JACOBSON AT BEDSIDE. PT RESTING IN BED WITH EYES CLOSED, RR EVEN AND UNLABORED. NO DISTRESS NOTED. PT APPEARS COMFORTABLE. CALL LIGHT IN REACH.
--- NOTE | 2020-08-27 21:09 | NUR ---
POLICE DEPARTMENT CALLED STATING THEY HAD A CALL TO DO A WELFARE CHECK AT THE PT'S HOME AND NO ONE ANSWERED. THEY WANTED TO VERIFY IF HE WAS A PT. THIS RN SPOKE WITH THE PT TO SEE IF HE WAS OK WITH US RELEASING THAT HE IS A PATIENT HERE. THE PT STATES IT IS OK TO TELL THEM HE IS A PT HERE AND TO ASK THEM TO KEEP AN EYE ON HIS HOUSE. UPON RETURNING TO THE PHONE, THE POLICE WERE NO LONGER ON THE PHONE LINE. NOTIFIED ANIMAL CRUELTY INVESTIGATOR THAT IF THEY CALL BACK, THE PT STATES IT IS OK TO CONFIRM HE IS A PT HERE.
--- NOTE | 2020-08-27 21:50 | NUR ---
ASSESSMENT COMPLETE, SCHEDULED MEDS GIVEN (SEE EMAR). VSS, PT DENIES PAIN AND NAUSEA. SCHEDULED BOWEL MEDS HELD PER PT REQUEST. NO ADDITIONAL NEEDS, CALL LIGHT IN REACH.
--- NOTE | 2020-08-27 22:50 | NUR ---
asst pt to be comfortable in bed, 2pa booted with asst from pt, blankets up, pt feels comfortable at this time, no further needs at this time
--- NOTE | 2020-08-27 23:52 | NUR ---
ROUNDED ON PT. PT RESTING QUIETLY IN BED WITH EYES CLOSED. RR EVEN AND UNLABORED. CALL LIGHT IN REACH.
--- NOTE | 2020-08-28 01:49 | NUR ---
PT CALLED TO GET WATER, ALBE TO PROVIDE PT WITH 200 ML'S, ALSO PROVIDED WARM BLANKET, NO FURTHER NEEDS AT THIS TIME
--- NOTE | 2020-08-28 02:30 | NUR ---
PT AWAKE AND RESTING IN BED, HOB ELEVATED PER PT REQUEST. NO ADDITIONAL NEEDS, CALL LIGHT IN REACH.
--- NOTE | 2020-08-28 03:38 | NUR ---
PT CALLED TO PLACE BREAKFAST ORDER, WROTE OREDER DOWN, ASKED FOR MORE WATER, INFORMED PT THAT WE CAN HAVE MORE WATER AT 0600 DUE TO 1600ML RESTRICTIONS, NO FURTHER NEEDS AT THIS TIME
--- NOTE | 2020-08-28 04:46 | NUR ---
PT HAD A SIRIA OVERALL, SLEPT OFF AND ON THIS SHIFT. VSS, PT A/O AND CALLS APPROPERIATELY. 1PA WITH FWW. DAILY WEIGHT. 2G SODIUM DIET, TOLERATING WELL WITH DAILY FLUID RESTRICTION. NO NAUSEA OR PAIN REPORTED.
--- NOTE | 2020-08-28 05:31 | NUR ---
PT CALLED FOR HELP FINDING HIS SOCKS. SOCKS ARE NOW ON HIS FEET. HE THEN WANTED TO SIT IN THE CHAIR, SBA W/FWW TO CHAIR. PT HAS FRESH WATER AT BEDSIDE AND DENIES FURTHER NEEDS. CALL LIGHT IS CLOSE.
--- NOTE | 2020-08-28 06:05 | NUR ---
SCHEDULED PROTONIX GIVEN (SEE EMAR). SNACK AND BLANKET ALSO GIVEN PER PT REQUEST. PT RESTING IN CHAIR, DENIES ADDITIONAL NEEDS. CALL LIGHT IN REACH.
--- NOTE | 2020-08-28 07:50 | NUR ---
PATIENT SLEEPING. WHITE BOARD UPDATED. CALL LIGHT WITHIN REACH. NO OTHER NEEDS AT THIS TIME
--- NOTE | 2020-08-28 09:15 | NUR ---
PT ASLEEP IN BED WITH CURTAINS CLOSED. SAYS HE FEELS LIKE TAKING A MORNING NAP BECAUSE HE DID NOT SLEEP WELL LAST NIGHT. PT SKIN FEELS WARM TO THE TOUCH AND IS C/O OF LOWER BACK DISCOMFORT YET IS AFEBRILE AT 97.4. WILL CONTINUE TO MONITOR. PT ALSO REFUSED MORNING BOWEL MEDS. SAYS HE FEELS HE DOESN'T NEED THEM SINCE HE DOESN'T HAVE PROBLEMS WITH BM'S AT HOME, NURSE EDUCATED PT THAT WITH HIM BEING LESS ACTIVE IN THE HOSPITAL HIS BOWEL ACTIVITY COULD DECREASE AND HE COULD BECOME CONSTIPATED IF HE STAYS IN BED AND CONTINUES TO REFUSE BOWEL MEDS. ENCOURAGED PT TO BE MORE ACTIVE DURING THE DAY TOLERATED AND PARTIPATE WITH PT/OT. IF PT IS UNABLE TO TOLERATE MORE ACTIVITY, IT IS RECOMMENDED HE TAKE HIS BOWEL MEDS PRESCRIBED. ASSESSMENT COMPLETED. MEDS GIVEN. VISITOR NOW IN PT ROOM.
--- NOTE | 2020-08-28 10:11 | NUR ---
PATIENT RESTING IN BED. VITAL SIGNS DONE BY RN. I&O DONE. PATIENT DID NOT VOID DURING THIS PERIOD. RN NOTIFIED. CALL LIGHT WITHIN REACH. NO OTHER NEEDS AT THIS TIME
--- NOTE | 2020-08-28 11:00 | NUR ---
PT UP TO BATHROOM WITH FWW AND 1-PERSON ASSIST. ABLE TO HAVE BM AND 1 UNMEASURED VOID. PT NOW UP IN CHAIR WITH VISITOR IN THE ROOM. CALL LIGHT WITHIN REACH.
--- NOTE | 2020-08-28 11:34 | NUR ---
CALL LIGHT ANSWERED. PATIENT ASKS FOR WARM BLANKET. PATIENT SITTING UP IN CHAIR. WARM BLANKET PROVIDED. CALL LIGHT WITHIN REACH. NO OTHER NEEDS AT THIS TIME
--- NOTE | 2020-08-28 12:15 | NUR ---
PT UP IN CHAIR EATING LUNCH. THIS RN IN TO GIVE POTASSIUM. REFILLED PT WATER. EMPTIED URINAL OF 100 MLS OF DARK YELLOW URINE. TV ON. CALL LIGHT WITHIN REACH.
--- NOTE | 2020-08-28 13:10 | NUR ---
pt eating and drinking well. Torsemide given. Pt in chair watching tv. Call light within reach. No further needs at this time.
--- NOTE | 2020-08-28 13:32 | NUR ---
PATIENT SITTING UP IN CHAIR. I&O DONE. CALL LIGHT WITHIN REACH. NO OTHER NEEDS AT THIS TIME
--- NOTE | 2020-08-28 14:17 | NUR ---
Helped pt back into bed at 1330. Pt currently napping, visualized chest rise and fall.
--- NOTE | 2020-08-28 16:41 | NUR ---
SHOWER OFFERED TO PT. PT REFUSED STATING, "I'M LEAVING TO GO HOME SOON". WHEN DISSCUSSING THE IMPORTANCE OF BECOMING INDEPENDENT AND SAFE WITH ADL'S AND PRACTICING IN A SAFE ENVIRONMENT WITH STAFF ASSISTANCE PT BECAME IRRITATED SAYING "I DO NOT WANT TO SHOWER TODAY OR TOMORROW AND DON'T ASK ME AGAIN, MAYBE LATER I'LL CHANGE MY MIND".
--- NOTE | 2020-08-28 18:07 | NUR ---
PATIENT SITTING UP IN CHAIR. I&O DONE. CALL LIGHT WITHIN REACH. NO OTHER NEEDS AT THIS TIME
--- NOTE | 2020-08-28 18:36 | NUR ---
PT FOUND SITTING IN CHAIR WITH ALL CLOTHS OFF. NO STAFF ASSISTED. REMINDED PT OF IMPORTANCE OF CALLING WHEN GETTING OUT OF CHAIR. PT ASSISTED IN PUTTING GOWN ON THEN WITH FWW BACK TO BED. WATER REFRESHED. CALL LIGHT IN REACH, BED ALARM PLACED. WARM BLANKETS PROVIDED.
--- NOTE | 2020-08-28 19:05 | NUR ---
PT LYING IN BED. SHIFT REPORT RECIEVED BY RN. BED ALARM ON. IV SALINE LOCKED. WHITE BOARD CLEARED. CALL LIGHT IN REACH. NO FURTHER CONCERNS AT THIS TIME.
--- NOTE | 2020-08-28 20:38 | NUR ---
PT LYING IN BED. ASSESSMENT COMPLETE. SCHEDULED MEDS GIVEN. VS STABLE. PT REQUESTED PRN PAIN MEDS DUE TO PAIN ON ANKLES 03/24. REPOSITIONED PT,ASSISTED IN PUTTING NEW CLOTHES. CALL LIGHT WITHIN REACH. BED ALARM ON. NO FURTHER NEEDS OR CONCERNS.
--- NOTE | 2020-08-28 22:14 | NUR ---
PT LYING IN BED. REQUESTED A SNACK. PUDDING WAS GIVEN. NO FURTHER NEEDS.
--- NOTE | 2020-08-28 23:37 | NUR ---
PT LYING IN BED. AWAKE AND ORIENTED. CALL LIGHT IN REACH. NO FURTHER NEEDS AT THIS TIME. BED ALARM ON.
--- NOTE | 2020-08-29 01:00 | NUR ---
pt up on side of bed, bed alarm going off, pt apears confused to location, rn in rm asst pt to reorient, pt states 'I do not know why I need to get up' got pt to lay bk in bed in sitting position, denies further needs, bed alarm reset
--- NOTE | 2020-08-29 02:00 | NUR ---
PT SITTING UP IN BED. PT APPEARS RESTLESS. REQUESTED SNACK. REPOSITIONED IN BED. [place] PT REORIENTED TO PLACE. BED ALARM ON. CALL LIGHT IN REACH. NO FURTHER NEEDS.
--- NOTE | 2020-08-29 04:15 | NUR ---
PT LYING IN BED. CALLS APPROPRIATLY. REQUESTED WATER. APPEARS RESTLESS. REPOSITIONED IN BED. CALL LIGHT IN REACH. NO FURTHER CONCERNS AT THIS TIME.
--- NOTE | 2020-08-29 04:56 | NUR ---
BED ALARM GOING OFF, PT NEEDS TO HAVE A BM, 1PA FWW TO TOILET, PT MISSED VOIDING INTO TOILET, PUT TOWEL ON FLOOR, NO BM PRODUCED BY PT AT THIS TIME, PT UP TO THE CHAIR AFTER STANDING WEIGHT TAKEN, I&OS DONE, NO FURTHER NEEDS AT THIS TIME
--- NOTE | 2020-08-29 05:32 | NUR ---
IN RM TO PROVIDE PT WARM BLANKETS AT PT REQUEST, PT INQUIRING ABT WHAT TIME BREAKFAST WILL BE, INFORMED PT OF THE TIME ONCE AGAIN, NO FURTHER NEEDS AT THIS TIME
--- NOTE | 2020-08-29 05:57 | NUR ---
PT SITTING UP IN CHAIR. STATES HAVING PAIN ON BLE ANKLES 02/21. PRN TYLENOL ADMINISTERED PER REQUEST. I AND O'S COMPLETE. CALL LIGHT IN REACH. BED ALARM ON. NO FURTHER NEEDS AT THIS TIME.
--- NOTE | 2020-08-29 06:42 | NUR ---
PT RESTLESS THROUGHOUT THE NIGHT. C/O PAIN ON BILATERAL ANKLES. PRN TYLENOL ADMINISTERED PER REQUEST. 2G SODIUM DIET. DAILY WT. 2000ML FLUID RESTRICTION. VSS. 1PA W/FWW, BED ALARM AND CHAIR ALARM FOR SAFETY.
--- NOTE | 2020-08-29 07:33 | NUR ---
PT RESTING IN BED STATES HE WAS UP TO THE CHAIR EARLIER IN THE MORNING FOR A COUPLE OF HOURS. RESTING COMFORTABLY NOW. DENIES DISCOMFORTS OR NEEDS OF.
--- NOTE | 2020-08-29 08:25 | NUR ---
BR CALLLIGHT ANSWERED. FACE AND HANDS WASHED, PATIENT BACK TO BED USING FWW, WAITING FOR BREAKFAST, REQUESTS BLINDS NOT OPEN TO AVOID GLARE ON TV. LINENS CHANGED. CALLIGHT IN REACH
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
--- NOTE | 2020-08-29 13:20 | NUR ---
PATIENT AWAKE IN BED, I&OS CHARTED. 2 WARM BLANKETS PROVIDED AND CALL LIGHT IN REACH
--- NOTE | 2020-08-29 14:48 | NUR ---
CALL LIGHT ANSWERED. PATIENT SITTING UP IN BED. PATIENT'S DINNER ORDERED. CALL LIGHT WITHIN REACH. NO OTHER NEEDS AT THIS TIME
--- NOTE | 2020-08-29 14:51 | NUR ---
DC INSTRUCTIONS REPEATED QUESTIONS ANSWERED. PT AND SPOUSE VERBALIZE UNDERSTANDING. WRITTEN INSTRUCTIONS SENT WITH PT. ALL PERSONAL BELONGINGS RETURN.
--- NOTE | 2020-08-29 15:27 | NUR ---
PT UP TO WORK WITH P/T RETURNS TO CHAIR SITTING UP WATCHING SPORTS AT THIS TIME
--- NOTE | 2020-08-29 15:44 | NUR ---
CALL LIGHT ANSWERED. PATIENT ASKS FOR WARM BLANKET. WARM BLANKET PROVIDED. CALL LIGHT WITHIN REACH. NO OTHER NEEDS AT THIS TIME
--- NOTE | 2020-08-29 18:03 | NUR ---
PATIENT AWAKE IN CHAIR EATING DINNER, PATIENT ENJOYING HIS FOOD. I&OS CHARTED. CALL LIGHT IN REACH
--- NOTE | 2020-08-29 18:08 | NUR ---
PT UP IN THE CHAIR FOR EVENING MEAL WATCHING SPORTS ON TV. AGREES HE HAS EVERYTHING HE NEEDS. CALL LIGHT IN LAP
--- NOTE | 2020-08-29 19:05 | NUR ---
SHIFT REPORT RECEIVED FROM DAYSHIFT RN INDIRA AT BEDSIDE. PT RESTING IN BED WITH EYES CLOSED, RR EVEN AND UNLABORED. NO DISTRESS NOTED, PT APPEARS COMFORTABLE. CALL LIGHT IN REACH.
--- NOTE | 2020-08-29 19:30 | NUR ---
PT REQUESTING PUDDING, PROVIDED, EMPTING URINAL
--- NOTE | 2020-08-29 20:00 | NUR ---
IN RM TO PROVIDE WATER, NO FURHTER NEEDS
--- NOTE | 2020-08-29 20:44 | NUR ---
IN RM FOT PT, CALL LIGHT ON, BED ALARM SET OFF, PT UP TO USE URINAL, NO FURTHER NEEDS AT THIS TIME
--- NOTE | 2020-08-29 21:17 | NUR ---
CALL LIGHT ANSWERED. TEMPERATURE ADJUSTED IN ROOM. pt DENIES ADDITIONAL REQUESTS AT THIS TIME. BED ALARM ON.
--- NOTE | 2020-08-29 22:04 | NUR ---
IN RM TO GET VITALS PER RN, NO FURTHER NEEDS AT THIS TIME
--- NOTE | 2020-08-29 22:15 | NUR ---
ASSESSMENT COMPLETE, SCHEDULED MEDS GIVEN (SEE EMAR). PT REFUSED BOWEL MEDS. VSS, PT A/OX4. BED ALARM ON FOR SAFETY. PT DENIES PAIN AND NAUSEA. WARM BLANKET AND SNACK PROVIDED. NO FURTHER NEEDS, CALL LIGHT IN REACH.
--- NOTE | 2020-08-29 22:25 | NUR ---
IN RM TO TURN PT RM LIGHT OFF, NO FURTHER NEEDS AT THIS TIME
--- NOTE | 2020-08-29 23:08 | NUR ---
PT RESTING IN BED WITH EYES CLOSED, RESPIRATIONS REMAIN EVEN AND UNLABORED. NO DISTRESS NOTED. CALL LIGHT IN REACH AND BED ALARM ON.
--- NOTE | 2020-08-30 00:34 | NUR ---
CALL LIGHT ANSWERED, WARM BLANKET PROVIDED. NO FURTHER NEEDS, CALL LIGHT IN REACH. BED ALARM ON.
--- NOTE | 2020-08-30 01:07 | NUR ---
PT CALLED TO GET BLANKET STRAIGHTENED OUT, THEN REQUESTED WATER, ABLE TO PROVIDE 100 MLs TO PT'S CUP, NO FURTHER NEEDS AT THIS TIME
--- NOTE | 2020-08-30 02:40 | NUR ---
PT CALLED, STATES HE NEEDS TO STRETCH OUT, IN RM TO ASST PT, PT 'FEELS BETTER' NO FURTHER NEEDS AT THIS TIME
--- NOTE | 2020-08-30 02:55 | NUR ---
PT RESTING IN BED WITH EYES CLOSED, RR EVEN AND UNLABORED. NO DISTRESS NOTED, CALL LIGHT IN REACH. BED ALARM ON.
--- NOTE | 2020-08-30 03:29 | NUR ---
IN RM, BED ALARM SOUNDING, PT UP AT BEDSIDE, NEEDED TO VOID, PT BACK IN BED AT THIS TIME, BAD ALARM SET, NO FURTHER NEEDS AT THIS TIME
--- NOTE | 2020-08-30 03:53 | NUR ---
PT CALLED, FELT LIKE HE NEEDED TO STRECH OUT, SLID DOWN IN BED, STOOD BY WHILE PT ADJ IN BED, NO FURTHER NEEDS AT THIS TIME
--- NOTE | 2020-08-30 06:11 | NUR ---
CALL LIGHT ANSWERED, ASSISTED PT WITH RAISING HOB. SCHEDULED MED GIVEN (SEE EMAR). NO ADDITIONAL NEEDS, SEAL MIXING OPERATOR JEANE IN ROOM TO COLLECT WEIGHT.
--- NOTE | 2020-08-30 06:38 | NUR ---
PT HAD A GOOD NIGHT, SLEPT OFF AND ON THIS SHIFT. FREQUENT USE OF CALL LIGHT FOR SIMPLE NEEDS SUCH HOB RAISED OR READJUSTED IN BED. BED ALARM ON FOR SAFETY. 2G SODIUM DIET WITH FLUIDS RESTRICTION, TOLERATING WELL. NO PAIN OR NAUSEA REPORTED. 1PA WITH FWW. PT/OT ORDERS.
--- NOTE | 2020-08-30 07:11 | NUR ---
PT RESTING EYES CLOSED AT TIME OF REPORT, APPEARS TO BE SLEEPING
--- NOTE | 2020-08-30 07:40 | NUR ---
PATIENT SITTING UP IN CHAIR. WHITE BOARD UPDATED. CALL LIGHT WITHIN REACH. NO OTHER NEEDS AT THIS TIME
--- NOTE | 2020-08-30 09:07 | NUR ---
PT HAS BEEN UP TO THE CHAIR FOR A TIME. COMPLETES 100% OF MORNING MEAL. DENIES DISCOMFORTS OR NEEDS OF. USING CALL LIGHT APPROPRIATELY.
--- NOTE | 2020-08-30 10:01 | NUR ---
PATIENT SITTING UP IN CHAIR. VITAL SIGNS AND I&O DONE. CALL LIGHT WITHIN REACH. NO OTHER NEEDS AT THIS TIME
--- NOTE | 2020-08-30 10:26 | NUR ---
PT UP AND WORKS WITH O/T RESTING IN RECLINER AT THIS TIME. CALL LIGHT IN HAND
--- NOTE | 2020-08-30 10:46 | NUR ---
CALL LIGHT ANSWERED. PATIENT SITTING UP IN CHAIR. PATIENT'S URINAL WAS WMPTIED. CALL LIGHT WITHIN REACH. NO OTHER NEEDS AT THIS TIME
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
--- NOTE | 2020-08-30 13:00 | NUR ---
PT ALERT, ORIENTED AND SITTING IN CHAIR WATCHING TV. PT SEEMS TO ENJOY VISITING, SEEMS TO APPRECIATE COMPANY. PT PLEASED HE HAS HIS SHOES AND NEEDED THEM TO AID IN REHAB. PT CONCERNED ABOUT BILLS PILING UP AND HE IS THE ONLY ONE WHO CAN PAY THEM. TALKED ABOUT WORKING HARD TO BE ABLE TO RETURN HOME SOON AND TAKE CARE OF HIMSELF. PT ACKNOWLEDGES. GAVE PT A BLESSING, WILL CONTINUE TO FOLLOW
--- NOTE | 2020-08-30 13:40 | NUR ---
Returned to pt's room with Medicare dc letter, survey and letter to [employer]. Pt sleeping, not awakened. Will give today for dc tomorrow.
--- NOTE | 2020-08-30 13:46 | NUR ---
PATIENT SITTING UP IN CHAIR. I&O DONE. CALL LIGHT WITHIN REACH. NO OTHER NEEDS AT THIS TIME
--- NOTE | 2020-08-30 14:57 | NUR ---
PT HAS BEEN UP TO THE CHAIR THEN TO REST IN BED SEVERAL TIMES TODAY. AGREES HE IS COMFORTABLE. PT STATES HE BELIEVES HE IS READY FOR DC, AGREES HE FEELS STRONGER AND ABLE TO FUNCTION INDEPENDENTLY
--- NOTE | 2020-08-30 17:51 | NUR ---
PT CONTINUES UP IN THE CHAIR WITH EVENING MEAL DENIES FURTHER NEEDS OF. WATCHING TV NOW, FINISHED THE NEWS PAPER EARLIER
--- NOTE | 2020-08-30 19:35 | NUR ---
REPORT RECEIVED FROM DAY SHIFT RN. PT SITTING IN RECLINER ALERT AND ORIENTED WATCHING TV. DENIES NEEDS AT THIS TIME. WHITE BOARD UPDATED. CALL LIGHT IN REACH.
--- NOTE | 2020-08-30 21:40 | NUR ---
EVENING ASSESSMENT COMPLETE. SCHEDULED MEDS ADMINISTERED PER EMAR. STOOL SOFTENER HELD DUE TO PT HAVING EXTRA LARGE BOWEL MOVEMENT. BLE ELEVATED, EDEMA NOTED. PT DENIES PAIN OR NAUSEA. PT REMAINS WITHIN FLUID RESTRICTION. DENIES QUESTIONS OR CONCERNS. CALL LIGHT IN REACH.
--- NOTE | 2020-08-30 23:43 | NUR ---
PT RESTING IN BED WITH EYES CLOSED. RESPIRATIONS EVEN AND UNLABORED. CALL LIGHT IN REACH.
--- NOTE | 2020-08-31 00:39 | NUR ---
ROUNDED ON pt. RESTING IN BED WITH EYES CLOSED, RESPIRATIONS REGULAR. URINAL EMPTIED. CALL LIGHT WITHIN REACH.
--- NOTE | 2020-08-31 03:03 | NUR ---
CALL LIGHT ON. pt REQUESTED A SNACK. PROVIDED. URINAL EMPTIED. NO FURTHER REQUESTS AT THIS TIME. CALL LIGHT WITHIN REACH.
--- NOTE | 2020-08-31 04:57 | NUR ---
CALL LIGHT ON. pt REQUESTED ASSISTANCE WITH BLANKETS. DAILY WEIGHT DONE. NO FURTHER REQUESTS. CALL LIGHT WITHIN REACH.
--- NOTE | 2020-08-31 07:30 | NUR ---
REPORT RECEIVED FROM TATYANA ARIZA. THIS RN AND TATYANA BOWEN ASSUMING CARE OF PT. PT REQUESTS ASSISTANCE UP TO CHAIR FOR BREAFAST. PTS PANTS NOTED TO BE SOLIED WITH URINE. PT ASSISTED WITH ZACARIAS CARE AND CHANGING PANTS. PT ABLE TO PUT ON PANTS AND SHOES WITH MINIMAL ASSITANCE. PT UP TO CHAIR AWAITING BREAKFAST. NO ADDITIONAL REQUESTS OR COMPLAINTS. CALL LIGHT WIHTIN REACH. CHAIR ALARM ON.
--- NOTE | 2020-08-31 07:37 | NUR ---
In room for shift report from Suzy JOE. Pt was alert and pleasant upon greeting. Pt up to chair with FWW and SBA from Isabell JOE and young RN. Pt in chair, table and call light within reach. Pt report included: Pt is a 1PA FWW and has had an uneventful night. Pt anticipating DC today.
--- NOTE | 2020-08-31 08:30 | NUR ---
In room for pt assessment and med pass. Pt up to chair. Pt assessment complete, VSS, pt reports no pain or nausea at this time. Pt able to take meds without difficulty. Pt refused miralax, states "I am not taking that miralax one, I have already pooped and really don't need more". Pt in chair, table and call light within reach. Pt anticipating DC within the morning.
[2020-08-31] MEDS ORDERED: POTASSIUM CHLO10 ME1 PO (08:48)
[2020-08-31] MEDS ORDERED: TORSEMIDE20 MG PO (08:49)
[2020-08-31] MEDS ORDERED: PROTONIX40 MG PO (08:49)
--- NOTE | 2020-08-31 09:03 | NUR ---
PATIENT SITTING UP IN CHAIR. RN IN ROOM. VITAL SIGNS AND I&O DONE. CALL LIGHT WITHIN REACH. NO OTHER NEEDS AT THIS TIME
--- NOTE | 2020-08-31 09:23 | NUR ---
Pt agreed to PCP and appt scheduled with Dr. Laurent at [facility]. Called and [facility], they are not able to complete admissions until the end of next week. Called [facility] and they are available to admit in 48 hours. Chart with face, progress notes, dc summary, and PT referral scanned to [facility].
--- NOTE | 2020-08-31 09:44 | NUR ---
Updated appt has been made with Dr. Laurent, PT has been ordered and [facility] will call in the next 48 hours.
--- NOTE | 2020-08-31 09:52 | NUR ---
PT READY FOR DISCRHAGE. QAMAR, CHF [employer], CALLED AND ASKED IF SHE CAN VISIT WITH PT PRIOR TO DISCHARGE. QAMAR STATES HER NEXT AVALIABLE TIME TO CONSULT WITH PT WOULD BE AT 1630. PT WOULD NOT LIKE TO WAIT FOR THAT TIME AND WOULD PREFER TO LEAVE HOSPITAL THIS MORNING AND VISIT WITH QAMAR AN OUT PATIENT. QAMAR STATES SHE WILL CALL PT TO FOLLOW UP AT HOME.
--- NOTE | 2020-08-31 10:19 | NUR ---
PT READY FOR DISCHARGE. HEART FAILURE EDUCATION DONE WIHT PT INCLUDING DAILY WEIGHTS, LOW SALT DIET, AND RED/YELLOW/GREEN ZONES OF HEART FAILURE. PT DEMONSTRATES UNDERSTANDING BY STATING HE IS IN THE "GREEN" ZONE TODAY AND RECORDING DAILY WEIGHT AND COLOR ZONE FOR THE DAY. VITALS TAKEN. IV DC'D PER PROTOCOL, TIP INTACT, GAUZE AND COBAN APPLIED. DISCHARGE INSTRUCTIONS REVIEWED WIHT PT. PT VERBALIZES UNDERSTANDING OF INSTRUCTIONS, MEDICATIONS, FOLLOW UP, AND HEART FAILURE RECORD WORKSHEET INCLUDING DAILY WEIGHTS AND WHEN TO CALL HIS DOCTOR. PT DRESSED, BELONGINS PACKED. CARE RIDE CALLED FOR PT. AWAITING PHARMACIST TO FINISH ARRANGING MEDICATIONS FOR PT. PT UP TO CHAIR. CALL LIGHT WITHIN REACH, CHAIR ALARM ON.
--- NOTE | 2020-08-31 11:20 | NUR ---
PHARMACIST FINISHED WITH ARRANGING PTS MEDICATIONS. PT READY FOR DISCHARGE. CARE RIDE ARRIVED. PT WHEELED TO FRONT WITH ALL PERSONAL BELONGINGS. PT STATES HE HAS NO ADDITONAL REQUESTS, QUESTIONS OR CONCERNS. PT WHEELED FROM UNIT WITH BELONGINGS.
--- NOTE | 2020-08-31 13:48 | NUR ---
PT DRESSED, WAITING FOR DC IN JUST A FEW MOMENTS. PT THANKED ME FOR THE TIME SPENT WITH HIM,HE WAS VERY PLEASED WITH CARE HE RECEIVED AND LOOKING FORWARD TO RETURNING HIME. ENCOURAGED PT TO OBTAIN [employer] [facility], HE ACKNOWLEDGED PT REQUESTED PRAYER,
== END 2020-08-31 11:25 | disposition home health service (06) | DRG 947 ==
LOC: MS 11:23
PROVIDERS: ADMIT Internal Medicine; ATTEND Internal Medicine
DX: R53.2 Functional quadriplegia (principal); I50.33 Acute on chronic diastolic (congestive) heart failure; I48.20 Chronic atrial fibrillation, unspecified; N17.9 Acute kidney failure, unspecified; I35.0 Nonrheumatic aortic (valve) stenosis; I12.9 Hypertensive chronic kidney disease with stage 1 through stage 4 chronic kidney disease, or unspecified chronic kidney disease; N18.32 Chronic kidney disease, stage 3b; F10.21 Alcohol dependence, in remission; K70.10 Alcoholic hepatitis without ascites; K59.00 Constipation, unspecified; K26.9 Duodenal ulcer, unspecified as acute or chronic, without hemorrhage or perforation; Z79.899 Other long term (current) drug therapy
CPT/HCPCS: 36415; 80048; 80053; 82607; 82728; 82746; 82977; 83540; 83735; 83880; 84466; 85025; 85045; 85610; 86704; 86706; 86803; 87340; 97110; 97116; 97140; 97162; 97166; 97535; 97537; J1940; J3475